=== PATIENT | male | born 1995 | race Caucasian/White ===

== ENCOUNTER 2018-11-23 18:49 | Emergency (ER) | payer OTHER ==
[2018-11-23] MEDS: RABIES IMMUNE GLOBULIN/PF 150 UNIT/ML VIAL IM (20:20)
== END 2018-11-23 20:22 | disposition home or self-care (01) ==
LOC: E/R 18:49
DX: S81.051A Open bite, right knee, initial encounter (principal); W54.0XXA Bitten by dog, initial encounter; Y92.410 Unspecified street and highway as the place of occurrence of the external cause
CPT/HCPCS: 90375; 96372; 99284-25